=== PATIENT | female | born 1955 | race Caucasian/White ===

== ENCOUNTER → 2023-09-18 14:35 | Outpatient (REF) | payer MEDICARE, SELFPAY | LOC: RAD 14:35 | PROVIDERS: ATTENDING PHYSICIAN Nurse Practitioner Family | DX: Z87.891 Personal history of nicotine dependence (principal) | CPT/HCPCS: 71271 ==

== ENCOUNTER → 2023-09-28 11:52 | Outpatient (REF) | payer MEDICARE, SELFPAY ==
[2023-09-28 12:54] LABS: % Basophils 1.1 % (0-2); % Eosinophils 1.3 % (0-6); % Immature Granulocytes 0.3 % (0-0.5); % Lymphocytes 40.3 % (20.5-51.1); % Monocytes 7.1 % (1.7-9.3); % Neutrophils 49.9 % (42.2-75.2); Absolute Basophils 0.1 10^3/uL (0-0.2); Absolute Eosinophils 0.1 10^3/uL (0-0.7); Absolute Monocytes 0.5 10^3/uL (0.1-0.6); Absolute Neutrophils 3.8 10^3/uL (1.4-6.5); Hemoglobin 12.7 g/dL (12.0-16.0); Mean Corp Hgb Conc. 34.3 g/dL (33.0-37.0); Mean Corpuscular Hgb 30.3 pg (27.0-31.0); Mean Corpuscular Volume 88.3 fL (81.0-99.0); Mean Platelet Volume 9.4 fL (7.4-10.4); Nucleated Red Blood Cells % 0 %; Platelet Count 338 10^3/uL (130-400); Red Blood Cell Count 4.19 10^6/uL (4.20-5.40); Red Cell Dist. Width 13.7 % (11.5-14.5); White Blood Cell Count 7.5 10^3/uL (4.8-10.8)
[2023-09-28 13:05] LABS: ALT (SGPT) 19 U/L (0-35); AST (SGOT) 23 U/L (14-36); Albumin 4.4 g/dl (3.5-5.0); Alkaline Phosphatase 137 U/L (38-126); Amylase 67 U/L (30-110); Blood Urea Nitrogen 15 mg/dl (7-17); Calcium 9.9 mg/dl (8.4-10.2); Carbon Dioxide 28 mmol/L (22-30); Chloride 104 mmol/L (98-107); Glucose 91 mg/dl (70-99); Lipase 46 U/L (23-300); Potassium 4.8 mmol/L (3.5-5.1); Sodium 138 mmol/L (135-145); Total Bilirubin 0.5 mg/dl (0.2-1.3); Total Protein 7.5 g/dl (6.3-8.2); eGFR > 60.00
== END ==
LOC: REG 11:52
PROVIDERS: ATTENDING PHYSICIAN Nurse Practitioner Family
DX: R10.11 Right upper quadrant pain (principal)
CPT/HCPCS: 36415; 76700; 80053; 82150; 83690; 85025

== ENCOUNTER → 2024-01-11 08:58 | Outpatient (REF) | payer MEDICARE, SELFPAY | LOC: RCS 08:58 | PROVIDERS: ATTENDING PHYSICIAN Internal Medicine Critical Care Medicine; FAMILY PHYSICIAN Nurse Practitioner Family | DX: R06.02 Shortness of breath (principal) | CPT/HCPCS: 93306 ==

== ENCOUNTER → 2024-03-11 09:57 | Outpatient (REF) | payer MEDICARE, SELFPAY | LOC: RCS 09:57 | PROVIDERS: ATTENDING PHYSICIAN Internal Medicine Cardiovascular Disease; FAMILY PHYSICIAN Nurse Practitioner Family | DX: R06.09 Other forms of dyspnea (principal); R07.89 Other chest pain; I25.10 Atherosclerotic heart disease of native coronary artery without angina pectoris | CPT/HCPCS: 93017 ==

== ENCOUNTER → 2024-08-14 15:48 | Outpatient (REF) | payer MEDICARE, SELFPAY | LOC: RAD 15:48 | PROVIDERS: ATTENDING PHYSICIAN Internal Medicine; FAMILY PHYSICIAN Nurse Practitioner Family | DX: N20.0 Calculus of kidney (principal) | CPT/HCPCS: 76775 ==

== ENCOUNTER 2024-08-19 06:22 | Day surgery (SDC) | payer MEDICARE, SELFPAY | END 2024-08-19 10:18 | disposition home or self-care (01) | LOC: GI 06:22 | PROVIDERS: ATTENDING PHYSICIAN Internal Medicine Gastroenterology | DX: R93.3 Abnormal findings on diagnostic imaging of other parts of digestive tract (principal); K22.2 Esophageal obstruction; K44.9 Diaphragmatic hernia without obstruction or gangrene; K57.10 Diverticulosis of small intestine without perforation or abscess without bleeding; K22.89 Other specified disease of esophagus; K20.90 Esophagitis, unspecified without bleeding | CPT/HCPCS: 43239; 88305 ==

== ENCOUNTER → 2024-09-20 08:16 | Outpatient (REF) | payer MEDICARE, SELFPAY | LOC: CRHB 08:16 | PROVIDERS: ATTENDING PHYSICIAN Nurse Practitioner Family | DX: M79.672 Pain in left foot (principal) | CPT/HCPCS: 73630 ==

== ENCOUNTER → 2024-09-23 13:43 | Outpatient (REF) | payer MEDICARE, SELFPAY | LOC: RAD 13:43 | PROVIDERS: ATTENDING PHYSICIAN Internal Medicine Critical Care Medicine | DX: Z87.891 Personal history of nicotine dependence (principal) | CPT/HCPCS: 71271 ==

== ENCOUNTER → 2024-12-24 08:37 | Outpatient (REF) | payer MEDICARE, SELFPAY | LOC: WDC 08:37 | PROVIDERS: ATTENDING PHYSICIAN Nurse Practitioner Family | DX: R92.8 Other abnormal and inconclusive findings on diagnostic imaging of breast (principal) | CPT/HCPCS: 76642; 77062; 77066 ==